=== PATIENT | female | born 2000 | race Hispanic/Latino ===

== ENCOUNTER 2018-07-06 18:59 | Emergency (ER) | payer OTHER ==
[2018-07-06 20:00] LABS: APPEARANCE,URINE CLOUDY (CLEAR); BILIRUBIN,URINE NEGATIVE (NEGATIVE); COLOR,URINE YELLOW (YELLOW); GLUCOSE, URINE (UA) NEGATIVE (NEGATIVE); KETONES,URINE NEGATIVE (NEGATIVE); LEUKOCYTE ESTERASE ,URINE NEGATIVE (NEGATIVE); NITRATE,URINE NEGATIVE (NEGATIVE); OCCULT BLOOD,URINE TRACE-INTACT (NEGATIVE); PROTEIN,URINE NEGATIVE (NEGATIVE)
[2018-07-06 20:04] LABS: HCG,QUAL RESULT NEGATIVE (NEGATIVE)
[2018-07-06 20:13] LABS: BACTERIA,URINE Moderate /HPF (None Seen); MUCUS,URINE Rare LPF (None Seen); SQUAMOUS EPITHELIAL CELL,UR Moderate /HPF (0-2)
== END 2018-07-06 20:38 | disposition home or self-care (01) ==
LOC: EDH 18:59
DX: N93.9 Abnormal uterine and vaginal bleeding, unspecified (principal)
CPT/HCPCS: 81001; 81025

== ENCOUNTER 2020-11-03 08:13 | Emergency (ER) | payer MEDICAID, OTHER ==
[2020-11-03] MEDS ORDERED: MORPHINE SULFATE 4 MG/1ML SYG ONE (09:03)
[2020-11-03] MEDS ORDERED: ONDANSETRON HCL 4 MG/2 ML VIAL ONE (09:03)
[2020-11-03] MEDS ORDERED: SODIUM CHLORIDE 0.9% 1000ML 1,000 ML IV ONE (09:04)
[2020-11-03 09:09] LABS: BASOPHILS % (AUTO) 0.4 % (0.0-5.0); EOSINOPHILS % (AUTO) 0.5 % (0.0-8.0); HEMATOCRIT 37.3 % (36-48); LYMPHOCYTES % (AUTO) 23.6 % (21.0-51.0); MEAN CORPUSCULAR HEMOGLOBIN 27.6 pg (27.0-33.0); MEAN CORPUSCULAR HGB CONC 32.7 g/dL (32.0-36.0); MEAN CORPUSCULAR VOLUME 84.4 fL (79-99); MONOCYTES % (AUTO) 4.8 % (3.0-13.0); NEUTROPHILS % (AUTO) 70.2 % (40.0-77.0); PLATELET COUNT (AUTO) 326 K/uL (130-400); RED BLOOD CELL COUNT(AUTO) 4.42 MIL/uL (4.00-5.50); RED CELL DISTRIBUTION WIDTH 12.5 % (11.0-15.5); WHITE BLOOD COUNT (AUTO) 8.3 K/uL (4.8-10.8)
[2020-11-03 09:36] LABS: CREATININE 0.8 mg/dL (0.5-1.5); POTASSIUM 3.4 mmol/L (3.5-5.1)
== END 2020-11-03 12:10 | disposition home or self-care (01) ==
LOC: EEVIPCON 08:13 → EDH 08:13
DX: O03.9 Complete or unspecified spontaneous abortion without complication (principal); O99.281 Endocrine, nutritional and metabolic diseases complicating pregnancy, first trimester; E28.2 Polycystic ovarian syndrome; E66.01 Morbid (severe) obesity due to excess calories; Z3A.01 Less than 8 weeks gestation of pregnancy
CPT/HCPCS: 36415; 76801; 80048; 84702; 85025; 86850; 86900; 86901; 96361; 96374; 96375; 99284; J2270; J2405; J7030

== ENCOUNTER 2021-11-28 02:48 | Emergency (ER) | payer MEDICAID, OTHER ==
[~2021-11-28] VITALS: Ht 154.9 cm; Wt 97.5 kg
[2021-11-28 02:49] VITALS: BP 144/79
[2021-11-28] MEDS ORDERED: PREDNISONE 20 MG TABLET PO ONE (03:30)
[2021-11-28] MEDS ORDERED: DiphenhydrAMINE HCL 50 MG/ML VIAL IM ONE (03:30)
[2021-11-28] MEDS ORDERED: PRED20TA3 PO (03:31)
== END 2021-11-28 03:41 | disposition home or self-care (01) ==
LOC: EDH 02:48
DX: L50.0 Allergic urticaria (principal); Z79.52 Long term (current) use of systemic steroids
CPT/HCPCS: 96372; 99283; J1200

== ENCOUNTER 2021-12-15 09:52 | Emergency (ER) | payer OTHER ==
[~2021-12-15] VITALS: Ht 154.9 cm; Wt 99.8 kg
[~2021-12-15 09:52] MED LIST: PRED20TA3 PO
[2021-12-15 09:58] VITALS: BP 118/70
[2021-12-15 10:35] LABS: BASOPHILS % (AUTO) 0.7 % (0.0-5.0); EOSINOPHILS % (AUTO) 3.4 % (0.0-8.0); HEMATOCRIT 38.4 % (36-48); LYMPHOCYTES % (AUTO) 39.1 % (21.0-51.0); MEAN CORPUSCULAR HEMOGLOBIN 27.4 pg (27.0-33.0); MEAN CORPUSCULAR HGB CONC 32.3 g/dL (32.0-36.0); MONOCYTES % (AUTO) 6.4 % (3.0-13.0); NEUTROPHILS % (AUTO) 50.2 % (40.0-77.0); PLATELET COUNT (AUTO) 274 K/uL (130-400); RED BLOOD CELL COUNT(AUTO) 4.52 MIL/uL (4.00-5.50); RED CELL DISTRIBUTION WIDTH 12.1 % (11.0-15.5); WHITE BLOOD COUNT (AUTO) 5.6 K/uL (4.8-10.8)
[2021-12-15] MEDS ORDERED: KETOROLAC 30MG VIAL (30MG/ML) IVP ONE (11:30)
[2021-12-15] MEDS ORDERED: HYDROCODONE/ACETAMINOPHEN 10/325 MG TAB PO ONE (11:30)
[2021-12-15] MEDS ORDERED: ACET-2079 PO (11:36)
== END 2021-12-15 11:43 | disposition home or self-care (01) ==
LOC: EDH 09:52
DX: O03.9 Complete or unspecified spontaneous abortion without complication (principal); Z79.1 Long term (current) use of non-steroidal anti-inflammatories (NSAID); Z79.52 Long term (current) use of systemic steroids
CPT/HCPCS: 36415; 84702; 85025; 86900; 86901; 96374; 99283; J1885

== ENCOUNTER 2021-12-17 13:27 | Emergency (ER) | payer OTHER ==
[~2021-12-17] VITALS: Ht 154.9 cm; Wt 99.8 kg
[~2021-12-17 13:27] MED LIST changes: +ACET-2079 PO
[2021-12-17 14:16] VITALS: BP 124/69
[2021-12-17 14:16] LABS: BASOPHILS % (AUTO) 0.3 % (0.0-5.0); EOSINOPHILS % (AUTO) 2.1 % (0.0-8.0); HEMATOCRIT 36.7 % (36-48); LYMPHOCYTES % (AUTO) 35.3 % (21.0-51.0); MEAN CORPUSCULAR HEMOGLOBIN 27.2 pg (27.0-33.0); MEAN CORPUSCULAR HGB CONC 32.2 g/dL (32.0-36.0); MEAN CORPUSCULAR VOLUME 84.6 fL (79-99); MONOCYTES % (AUTO) 5.2 % (3.0-13.0); NEUTROPHILS % (AUTO) 56.8 % (40.0-77.0); PLATELET COUNT (AUTO) 280 K/uL (130-400); RED BLOOD CELL COUNT(AUTO) 4.34 MIL/uL (4.00-5.50); RED CELL DISTRIBUTION WIDTH 12.1 % (11.0-15.5); WHITE BLOOD COUNT (AUTO) 6.2 K/uL (4.8-10.8)
[2021-12-17 14:26] LABS: CREATININE 0.8 mg/dL (0.5-1.5); POTASSIUM 3.5 mmol/L (3.5-5.1)
[2021-12-17 14:38] LABS: ALBUMIN 3.3 g/dL (3.5-5.0); BILIRUBIN,TOTAL 0.2 mg/dL (0.2-1.0); TOTAL PROTEIN, SERUM 6.8 g/dL (6.0-8.3)
== END 2021-12-17 15:20 | disposition home or self-care (01) ==
LOC: EDH 13:27
DX: O04.6 Delayed or excessive hemorrhage following (induced) termination of pregnancy (principal); Z79.52 Long term (current) use of systemic steroids
CPT/HCPCS: 36415; 76801; 80053; 84702; 85025

== ENCOUNTER 2024-06-11 12:05 | Emergency (ER) | payer OTHER ==
[~2024-06-11] VITALS: Ht 152.4 cm; Wt 90.7 kg
[2024-06-11] MEDS: HYDROcodone/APAP 5/325 1 TAB TABLET PO ONE (12:28)
[2024-06-11 12:46] LABS: CREATININE 0.7 mg/dL (0.5-1.0); POTASSIUM 3.7 mmol/L (3.5-5.1)
[2024-06-11 12:50] LABS: BASOPHILS # (AUTO) 0.04 K/uL (0.00-0.20); BASOPHILS % (AUTO) 0.5 % (0.0-5.0); EOSINOPHILS # (AUTO) 0.11 K/uL (0.00-0.70); EOSINOPHILS % (AUTO) 1.5 % (0.0-8.0); HEMATOCRIT 37.5 % (36-48); IMMATURE GRANULOCYTE ABSOLUTE 0.02 K/uL (0-1); LYMPHOCYTES # (AUTO) 2.9 K/uL (1.0-4.8); LYMPHOCYTES % (AUTO) 39.3 % (21.0-51.0); MEAN CORPUSCULAR HEMOGLOBIN 26.3 pg (27.0-33.0); MEAN CORPUSCULAR HGB CONC 32.5 g/dL (32.0-36.0); MEAN CORPUSCULAR VOLUME 80.8 fL (79-99); MONOCYTES # (AUTO) 0.5 K/uL (0.1-1.0); MONOCYTES % (AUTO) 6.3 % (3.0-13.0); NEUTROPHILS # (AUTO) 3.8 K/uL (1.8-7.7); NEUTROPHILS % (AUTO) 52.1 % (40.0-77.0); PLATELET COUNT (AUTO) 300 K/uL (130-400); RED BLOOD CELL COUNT(AUTO) 4.64 MIL/uL (4.00-5.50); RED CELL DISTRIBUTION WIDTH 14.5 % (11.0-15.5); WHITE BLOOD COUNT (AUTO) 7.3 K/uL (4.8-10.8)
[2024-06-11 13:44] LABS: APPEARANCE,URINE TURBID (CLEAR); BILIRUBIN,URINE SMALL mg/dL (NEGATIVE); COLOR,URINE RED (YELLOW); GLUCOSE, URINE (UA) 250 mg/dL (NEGATIVE); KETONES,URINE 15 mg/dL (NEGATIVE); LEUKOCYTE ESTERASE ,URINE MODERATE Leu/uL (NEGATIVE); NITRATE,URINE POSITIVE (NEGATIVE); OCCULT BLOOD,URINE LARGE (NEGATIVE); PH,URINE 6.5 (5.0-8.0); PROTEIN,URINE >=300 mg/dL (NEGATIVE); UROBILINOGEN,URINE >=8.0 mg/dL (0.2-1.0)
[2024-06-11 13:47] LABS: ADD UA MICROSCOPIC YES
[2024-06-11 13:49] LABS: HCG,QUALITATIVE URINE NEGATIVE (NEGATIVE)
[2024-06-11 14:18] LABS: RBC,URINE TNTC /HPF (0-1)
[2024-06-11 14:19] LABS: BACTERIA,URINE None Seen /HPF (None Seen); SQUAMOUS EPITHELIAL CELL,UR None Seen /HPF (0-2)
[2024-06-11] MEDS ORDERED: IBUP-2077 PO (14:52)
[2024-06-11] MEDS ORDERED: AMOX1TAB16 PO (14:52)
[2024-06-11 15:04] VITALS: BP 128/74; PULSE 72; RESP 16; TEMP 98.2; O2SAT 100
== END 2024-06-11 15:11 | disposition home or self-care (01) ==
LOC: EDH 12:05
DX: N93.8 Other specified abnormal uterine and vaginal bleeding (principal); N30.01 Acute cystitis with hematuria; E28.2 Polycystic ovarian syndrome; Z79.52 Long term (current) use of systemic steroids; Z90.49 Acquired absence of other specified parts of digestive tract; Z79.899 Other long term (current) drug therapy
CPT/HCPCS: 36415; 80048; 81001; 81025; 85025; 86850; 86900; 86901; 87086

== ENCOUNTER 2024-11-12 13:14 | Emergency (ER) | payer MEDICAID, OTHER ==
[~2024-11-12] VITALS: Ht 152.4 cm; Wt 93.0 kg
[~2024-11-12 13:14] MED LIST changes: +AMOX1TAB16 PO; +IBUP-2077 PO
--- NOTE | 2024-11-12 13:33 | EKG ---
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
--- NOTE | 2024-11-12 13:46 | ERN ---
General Chief Complaint: Shortness of Breath Stated Complaint: HIGH BP, SOB, 19 WEEKS PREG Time Seen by MD: 13:15 History of Present Illness Initial Comments 24-year-old female, G5, P1, A3, 19 weeks by LMP and ultrasound, presents for hypertension. Patient reports that last night she felt a little bit dyspneic. No cough congestion. No sore throat. No chest pain. She reports that she took her blood pressure with the [id number] wrist blood pressure cuff and the systolic was 180, prompting her to come to the emergency department. She saw Dr. Etienne Bedoya and Varun for her recent . 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 She also takes vitamins. She denies any medical or surgical history otherwise. Allergies: Coded Allergies: No Known Drug Allergies (Unverified Allergy, Unknown, 11/28/21) Home Meds Active Scripts Ibuprofen (Ibuprofen 800 mg Tab) 800 Mg Tab, 800 MG PO Q8H PRN for fever or pain, #30 TAB 0 Refills Prov:ENID TIERNEY NP 06/11/24 Amoxicillin/Potassium Clav (Amox Tr-K Clv 875-125 mg Tab) 875 Mg-125 Mg Tablet, 1 EACH PO BID for 7 Days, #14 TAB 0 Refills Prov:ENID TIERNEY NP 06/11/24 Acetaminophen with Codeine (Acetaminophen-Cod #3 Tablet) 1 Each Tablet, 1 TAB PO Q6H PRN for SEVERE PAIN (7-10), #12 TAB 0 Refills Prov:REGINA VILLA MD 12/15/21 Prednisone (Prednisone) 20 Mg Tablet, 40 MG PO DAILY for 4 Days, #8 TAB 0 Refills Prov:CLAUDIA RESENDIZ MD 11/28/21 Past Medical History Past Medical History: No Pertinent History, Other Medical History Other: PCOS Past Surgical History: Cholecystectomy Surgical History Other: UTERINE POLYP Family History Family History: Negative Social History Social History: ETOH, Other Female( History) LMP: Jun 26, 2024 : 5 Para: 0 Aborts: 4 ROS Dictation CONSTITUTIONAL: No chills, no fever, no weakness, no diaphoresis, no malaise. HEAD/FACE: No signs of trauma. EENT: No eye pain, no blurred vision, no tearing, no double vision, no ear pain, no ear discharge, no nose pain, no nasal congestion, no throat pain, no throat swelling, no mouth pain. RESPIRATORY: Dyspnea CARDIOVASCULAR: No chest pain, no edema, no palpitations, no syncope. GASTROINTESTINAL/ABDOMINAL: No abdominal pain, no constipation, no diarrhea, no nausea, no vomiting. GENITOURINARY: No abnormal discharge, no dysuria, no frequent urination, no hematuria. No complaints of pain in the genitals. MUSCULOSKELETAL: No back pain, no gout, no joint pain, no joint swelling, no muscle pain, no muscle stiffness, no neck pain. INTEGUMENTARY: No change in color, no change in hair/nails, no dryness, no lesion, no lumps, no rash. NEUROLOGICAL/PSYCH: No anxiety, not depressed, no emotional problem, no headache, no numbness, no pre-existing deficit, no history of seizures, no tremors, no weakness. HEMATOLOGIC/LYMPHATIC: Not anemic, no history of blood clots, no apparent bleeding, no bruising, glands not swollen. All Systems Negative, Except as Noted. Physical Exam Physical Exam Dictation VITAL SIGNS: Reviewed. GENERAL APPEARANCE: Alert, oriented x3, no acute distress, obese. HEAD AND FACE: Non-traumatic. EYES: PERRL, pink conjunctivas, eyelid no trauma, anterior chamber clear. EARS: Pinnas intact and no signs of trauma or erythema. Ear canals clear and no discharge. TMs no erythema. NOSE: No discharge, no bleeding. OROPHARYNX: Mouth normal, teeth no caries, tongue pink. Pharynx clear, no erythema. Tonsils no exudates, no abscesses noted. Mucous membrane moist. NECK: Supple, non-tender, no thyromegaly, no masses, no JVD, no bruits. BREAST: Deferred. CHEST: No tenderness, no crepitus, no paradoxical movement, no retractions. LUNGS: Clear, well-ventilated, symmetric, no rales, no wheezing, no rhonchi, no stridor, good breath sounds bilaterally. HEART: Regular rate, regular rhythm, no murmur, no gallops. VASCULAR: No peripheral edema. ABDOMEN: Soft, positive bowel sounds, nondistended, no guarding, nontender, no rebound, no masses no hepatomegaly, no splenomegaly, no Gutierrez's sign, no hernias. RECTAL: Deferred. GENITAL: Deferred. NEUROLOGICAL: Normal speech, gross motor function intact, gross sensory function intact. MUSCULOSKELETAL: Neck nontender, full range of motion, back nontender, full range of motion. EXTREMITIES: Nontender, full range of motion. SKIN: Color pink, dry, no turgor, no rash, no lacerations, no abrasions, no contusions. LYMPHATICS: Deferred. Results Laboratory and Microbiology Lab and Micro Result Laboratory Tests Test 11/12/24 14:55 11/12/24 16:16 White Blood Count 9.8 K/uL (4.8-10.8) Red Blood Count 4.72 MIL/uL (4.00-5.50) Hemoglobin 12.8 g/dL (12.0-16.0) Hematocrit 39.0 % (36-48) Mean Corpuscular Volume 82.6 fL (79-99) Mean Corpuscular Hemoglobin 27.1 pg (27.0-33.0) Mean Corpuscular Hemoglobin Concent 32.8 g/dL (32.0-36.0) Red Cell Distribution Width 15.3 % (11.0-15.5) Platelet Count 293 K/uL (130-400) Mean Platelet Volume 9.5 fL (7.5-10.5) Immature Granulocyte % (Auto) 1.1 % (0-1) H Neutrophils (%) (Auto) 75.6 % (40.0-77.0) Lymphocytes (%) (Auto) 17.8 % (21.0-51.0) L Monocytes (%) (Auto) 5.0 % (3.0-13.0) Eosinophils (%) (Auto) 0.3 % (0.0-8.0) Basophils (%) (Auto) 0.2 % (0.0-5.0) Neutrophils # (Auto) 7.4 K/uL (1.8-7.7) Lymphocytes # (Auto) 1.8 K/uL (1.0-4.8) Monocytes # (Auto) 0.5 K/uL (0.1-1.0) Eosinophils # (Auto) 0.03 K/uL (0.00-0.70) Basophils # (Auto) 0.02 K/uL (0.00-0.20) Absolute Immature Granulocyte (auto 0.11 K/uL (0-1) Nucleated Red Blood Cells 0.0 % (0.0-0.19) Sodium Level 135 mmol/L (136-145) L Potassium Level 3.9 mmol/L (3.5-5.1) Chloride Level 102 mmol/L (101-111) Carbon Dioxide Level 27 mmol/L (21-32) Blood Urea Nitrogen 5 mg/dL (7-18) L Creatinine 0.4 mg/dL (0.5-1.0) L Glomerular Filtration Rate Calc 140 mL/min (>90) Random Glucose 95 mg/dL (70-105) Total Calcium 9.3 mg/dL (8.5-10.1) Urine Color LIGHT-YELLOW (YELLOW) Urine Appearance CLEAR (CLEAR) Urine pH 5.5 (5.0-8.0) Urine Specific [place] 1.016 (1.001-1.031) Urine Protein NEGATIVE mg/dL (NEGATIVE) Urine Glucose (UA) NEGATIVE mg/dL (NEGATIVE) Urine Ketones 10 mg/dL (NEGATIVE) H Urine Occult Blood NEGATIVE (NEGATIVE) Urine Nitrate NEGATIVE (NEGATIVE) Urine Bilirubin NEGATIVE mg/dL (NEGATIVE) Urine Urobilinogen 0.2 mg/dL (0.2-1.0) Urine Leukocyte Esterase NEGATIVE [place]/uL MDM CC: Dyspnea, episode of hypertension at home, 20 weeks Historian: Patient Comorbidities: None Limitations by social determinants of health: None Vital signs: Stable 134/99, vital signs otherwise stable remained stable in the ER Differential diagnosis: Eclampsia/ preeclampsia, hypertension in , cardiac disease, other. EKG: Sinus rhythm, rate 84, normal axis, good R-wave progression, intervals stable no STEMI. Independently interpreted by me. Labs ( independently ordered and interpreted by me ): The CBC is normal. No signs of hemolysis or low platelets, low suspicion for HELLP syndrome. Chemi stry panel is normal. Urinalysis is normal. Ultrasound pelvis (independently interpreted by me): No free fluid or major abnormalities. There is a single IUP at 20 weeks 0 days, no major abnormalities. weight 339 g. Heart rate 171. Re-evaluation: Patient is still has stable vital signs she was asymptomatic currently. There is no headache or vision changes. Cranial nerves are intact. No GI symptoms. No signs of HELLP syndrome. No signs of preeclampsia. This point in time patient was safe for discharge. We will recommend they follow up with Dr. Bedoya, flagger, as an outpatient. ED Course Orders Procedure Category Date Status Time Cbc With Differential LAB 11/12/24 Complete 13: Basic Metabolic Panel LAB 11/12/24 Complete 13: Urinalysis Profile LAB 11/12/24 Complete 13: 12 Lead Ekg Tracing- EKG 11/12/24 Complete Technical 13: Chest 1vw RAD 11/12/24 Logged 13: Us Ob >14 Weeks US 11/12/24 Resulted 13:25 Vital Signs Date Time Temp Pulse Resp B/P (MAP) Pulse Ox O2 Delivery O2 Flow Rate FiO2 11/12/24 13:20 99.0 90 16 134/99 99 Room Air 0 DX & DISP Disposition: Discharge Departure Impression: Primary Impression: Shortness of breath during Condition: Stable Additional Instructions: There are no dangerous findings on your workup here today. Your blood pressure has been stable here in the ER. As we discussed, you may have had an erroneous blood pressure reading. Your lab work (CBC, BMP, urinalysis) is unremarkable. The ultrasound shows an intrauterine dated 20 weeks 0 days. The weight is 339 g. The heart rate is 171 beats per minute. As we discussed, please monitor for symptoms such as headaches, vision changes, persistent vomiting, vaginal bleeding or discharge, or significant abdominal pain. Please return to the emergency department if those develop. Otherwise, I recommend that you follow up with Dr. Bedoya as an outpatient. Referrals: SELF,REFERRAL (PCP) BISMARK PERRY DO Nov 12, 2024 13:46
--- NOTE | 2024-11-12 14:12 | HMCIMG ---
US OB >14 WEEKS HISTORY: abd pain. FINDINGS: Single fetus in transverse presentation. heart rate: 171 bpm. Amniotic fluid index: 10.8 cm- normal. Placenta: Anterior fundal and grade 2. Limited anatomical scan. stomach and urinary bladder and three-vessel cord insertion unremarkable. Other structures not well seen. BIOMETRIC DATA: Biparietal diameter: 4.37 cm, consistent with gestational age of 19 weeks 2 days. Head circumference: 17.25 cm, consistent with gestational age of 19 weeks 6 days. Abdominal circumference: 14.48 cm, consistent with gestational age of 19 weeks 6 days. Femoral length: 3.45 cm, consistent with gestational age of 20 weeks 6 days. weight: 339 grams. IMPRESSION: Single intrauterine of 20 weeks 0 days. Limited anatomical scan. Cervix is closed.
[2024-11-12 15:10] LABS: BASOPHILS # (AUTO) 0.02 K/uL (0.00-0.20); BASOPHILS % (AUTO) 0.2 % (0.0-5.0); EOSINOPHILS # (AUTO) 0.03 K/uL (0.00-0.70); EOSINOPHILS % (AUTO) 0.3 % (0.0-8.0); IMMATURE GRANULOCYTE ABSOLUTE 0.11 K/uL (0-1); LYMPHOCYTES # (AUTO) 1.8 K/uL (1.0-4.8); LYMPHOCYTES % (AUTO) 17.8 % (21.0-51.0); MEAN CORPUSCULAR HEMOGLOBIN 27.1 pg (27.0-33.0); MEAN CORPUSCULAR HGB CONC 32.8 g/dL (32.0-36.0); MEAN CORPUSCULAR VOLUME 82.6 fL (79-99); MONOCYTES # (AUTO) 0.5 K/uL (0.1-1.0); NEUTROPHILS # (AUTO) 7.4 K/uL (1.8-7.7); NEUTROPHILS % (AUTO) 75.6 % (40.0-77.0); PLATELET COUNT (AUTO) 293 K/uL (130-400); RED BLOOD CELL COUNT(AUTO) 4.72 MIL/uL (4.00-5.50); RED CELL DISTRIBUTION WIDTH 15.3 % (11.0-15.5); WHITE BLOOD COUNT (AUTO) 9.8 K/uL (4.8-10.8)
[2024-11-12 15:23] LABS: CREATININE 0.4 mg/dL (0.5-1.0); POTASSIUM 3.9 mmol/L (3.5-5.1)
[2024-11-12 16:32] LABS: APPEARANCE,URINE CLEAR (CLEAR); BILIRUBIN,URINE NEGATIVE (NEGATIVE); COLOR,URINE LIGHT-YELLOW (YELLOW); GLUCOSE, URINE (UA) NEGATIVE (NEGATIVE); KETONES,URINE 10 mg/dL (NEGATIVE); LEUKOCYTE ESTERASE ,URINE NEGATIVE Leu/uL (NEGATIVE); NITRATE,URINE NEGATIVE (NEGATIVE); OCCULT BLOOD,URINE NEGATIVE (NEGATIVE); PH,URINE 5.5 (5.0-8.0); PROTEIN,URINE NEGATIVE (NEGATIVE); UROBILINOGEN,URINE 0.2 mg/dL (0.2-1.0)
[2024-11-12 16:33] LABS: ADD UA MICROSCOPIC NO
[2024-11-12 17:46] VITALS: BP 134/89; PULSE 90; RESP 16; TEMP 99; O2SAT 99
== END 2024-11-12 17:49 | disposition home or self-care (01) ==
LOC: EDH 13:49
DX: O26.892 Other specified pregnancy related conditions, second trimester (principal); R06.02 Shortness of breath; Z3A.20 20 weeks gestation of pregnancy; Z79.52 Long term (current) use of systemic steroids; Z79.82 Long term (current) use of aspirin; Z90.49 Acquired absence of other specified parts of digestive tract
CPT/HCPCS: 36415; 76805; 80048; 81003; 85025; 93005; 99284